=== PATIENT | female | born 1990 | race Two or more races ===

== ENCOUNTER 2017-05-07 05:41 | Emergency (ER) | payer MEDICAID ==
[~2017-05-07] VITALS: Ht 162.6 cm; Wt 113.4 kg
[2017-05-07 06:05] VITALS: BP 111/67
[2017-05-07] MEDS ORDERED: IBUPROFEN 800 MG TAB PO ONE (07:30)
== END 2017-05-07 08:17 | disposition home or self-care (01) ==
LOC: ER 05:45
DX: S93.402A Sprain of unspecified ligament of left ankle, initial encounter (principal); M21.42 Flat foot [pes planus] (acquired), left foot; X58.XXXA Exposure to other specified factors, initial encounter; Y93.89 Activity, other specified; Y92.89 Other specified places as the place of occurrence of the external cause; Y99.8 Other external cause status
CPT/HCPCS: 29515; 73610; 73630; 81025